=== PATIENT | female | born 1960 | race Caucasian/White ===

== ENCOUNTER 2024-01-23 12:45 | Emergency (ER) | payer OTHER, SELFPAY ==
[2024-01-23 12:48] VITALS: BP 117/79
[2024-01-23 13:08] LABS: % Basophils 0.2 % (0-2); % Eosinophils 6.9 % (0-6); % Immature Granulocytes 0.2 % (0-0.5); % Lymphocytes 32.2 % (20.5-51.1); % Monocytes 7.1 % (1.7-9.3); % Neutrophils 53.4 % (42.2-75.2); Absolute Eosinophils 0.6 10^3/uL (0-0.7); Absolute Lymphocytes 2.9 10^3/uL (1.2-3.4); Absolute Monocytes 0.6 10^3/uL (0.1-0.6); Absolute Neutrophils 4.8 10^3/uL (1.4-6.5); Hematocrit 37.2 % (37.0-47.0); Hemoglobin 12.9 g/dL (12.0-16.0); Mean Corp Hgb Conc. 34.7 g/dL (33.0-37.0); Mean Corpuscular Hgb 29.5 pg (27.0-31.0); Mean Corpuscular Volume 85.1 fL (81.0-99.0); Mean Platelet Volume 10.4 fL (7.4-10.4); Nucleated Red Blood Cells % 0 %; Platelet Count 223 10^3/uL (130-400); Red Blood Cell Count 4.37 10^6/uL (4.20-5.40); Red Cell Dist. Width 12.7 % (11.5-14.5)
[2024-01-23 13:28] LABS: ALT (SGPT) 24 U/L (0-35); AST (SGOT) 34 U/L (14-36); Albumin 4.5 g/dl (3.5-5.0); Alkaline Phosphatase 57 U/L (38-126); Blood Urea Nitrogen 18 mg/dl (7-17); Calcium 9.7 mg/dl (8.4-10.2); Carbon Dioxide 26 mmol/L (22-30); Chloride 104 mmol/L (98-107); Glucose 103 mg/dl (70-99); Lipase 94 U/L (23-300); Potassium 4.8 mmol/L (3.5-5.1); Sodium 140 mmol/L (135-145); Total Bilirubin 0.6 mg/dl (0.2-1.3); Total Protein 7.1 g/dl (6.3-8.2); eGFR > 60.00
--- NOTE | 2024-01-23 15:06 | ED.GENMED ---
History of Present Illness
General
Chief Complaint: Abdominal Pain
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
Exam Limitations: none
Time Seen by Provider: 01/23/24 14:40
Nursing documentation reviewed up to this point in time: agreed with
History of Present Illness
History of Present Illness:
63-year-old female with no significant past medical history states she has had a week of mid to right upper quadrant pain, describes it as burning pain, it was worse last night and she had difficulty sleeping due to the pain. She took 1 omeprazole
with no relief. She has had intermittent nausea and this morning she was nauseous and vomited 3 times. Since yesterday she had diarrhea 3 times, 1 moderate amount and a few small squirts, last diarrhea was 4 AM. She states it was nonbloody. She
denies change in color of her stool.
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
Past History
Past History
ED Past Medical History: GERD
ED Past Surgical History: None
Social History
Tobacco: Non-smoker
Alcohol: None
Living: with family
Review of Systems
Review of Systems
Allergies reviewed?: Yes
All Other Systems: ROS reviewed and negative except as documented in HPI and ROS
Constitutional: Denies fever
EENT: Denies sore throat
Respiratory: Denies trouble breathing
Cardiac: Denies chest pain
ABD/GI: Reports abdominal pain, nausea, vomiting and diarrhea; Denies constipated, bloody stools, black stools or anorexia
: Denies dysuria, frequency or difficulty voiding
Musculoskeletal: Reports no symptoms
Skin: Reports no symptoms
Neurological: Reports no symptoms
Phy Exam
Physical Exam
Physical Exam:
GENERAL: No acute distress. A&Ox3.
CONSTITUTIONAL: Afebrile.
EYES: clear, conjunctivae normal
ENMT: moist mucus membranes, Pharynx nl
RESPIRATORY: Regular respirations, nonlabored, lungs clear.
CARDIOVASCULAR: Regular rate and rhythm, no murmurs, no rubs.
GI: Soft, tedner epigastric area mainly, mildly tender RUQ. Non distended, normal BS
MUSCULOSKELETAL: Moves with ease. Well perfused.
SKIN: Warm, dry, pink
PSYCH: Normal mood and affect. Well kept, interactive and appropriate
NEUROLOGIC: Awake, alert and oriented. No focal neurological deficits
Course
Orders/Labs/Results
Orders:
Orders
01/23/24 12:59
Complete Blood Count/With Diff Urgent
Comprehensive Metabolic Panel Urgent
Lipase Urgent
01/23/24 15:06
US Abdomen Complete/Upper Urgent
Comment:
Reason For Exam: mid to RUQ pain
01/23/24 17:48
Pantoprazole [Protonix] 40 mg PO NOW STA
Sucralfate [Carafate] 1 gram PO NOW STA
Abnormal Lab Results
01/23/24
12:59
Eosinophils % 6.9 H %
(0-6)
BUN 18 H mg/dl
(7-17)
Glucose 103 H mg/dl
(70-99)
01/23/24 12:59
01/23/24 12:59
Vital Signs
Initial and Last Documented VS:
Initial Vital Signs
Temp Pulse Resp BP Pulse Ox
97.7 F 77 18 117/79 94
01/23/24 12:48 01/23/24 12:48 01/23/24 12:48 01/23/24 12:48 01/23/24 12:48
Last Documented Vital Signs
Temp Pulse Resp BP Pulse Ox
97.7 F 66 18 121/70 97
01/23/24 12:48 01/23/24 17:25 01/23/24 17:25 01/23/24 17:25 01/23/24 17:25
MDM/Problems Addressed
Differential Diagnosis Includes:
GERD, GB disease, gastritis, PUD
MDM/Problems Addressed:
63-year-old female with no significant past medical history states she has had a week of mid to right upper quadrant pain, describes it as burning pain, it was worse last night and she had difficulty sleeping due to the pain. She took 1 omeprazole
with no relief. She has had intermittent nausea and this morning she was nauseous and vomited 3 times. Since yesterday she had diarrhea 3 times, 1 moderate amount and a few small squirts, last diarrhea was 4 AM. She states it was nonbloody. She
denies change in color of her stool.
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
CBC normal
CMP normal
5:30 PM: Awaiting ultrasound reading
Pt has been comfortable, pain 4/10.
No sign of GI bleed.
Upper abdominal US neg
Given dose of Protonix and Carafate
Rx for Protonix and Carafate sent to her pharmacy
Referred to GI for f/u
*Critical Care Note
Total Time (30-74mins, 75-104mins- exclusive of procedures): Not Applicable
ED Attending Note
-
Portions of this chart may have been created with voice recognition software.� Occasional wrong word or��sound alike� substitutions may have occurred due to the inherent limitations of voice recognition software.
Discharge Plan
Departure
Patient Disposition: Home (Routine Discharge)
Date of Disposition: 01/23/24
Time of Disposition: 17:49
Patient with high blood pressure during this ER visit?: No
Condition: Good
Discharge Problem:
GERD (gastroesophageal reflux disease)
Instructions: Acid Reflux and GERD in Adults (DC), Abdominal Pain
Prescriptions:
New
sucralfate [Carafate] 1 gram tablet
1 g PO ACHS Qty: 40 0RF
pantoprazole [Protonix] 40 mg tablet,delayed release (DR/EC)
40 mg PO DAILY Qty: 30 0RF
Referrals:
Jhon Leonard MD [Active] - Next open appointment
NONE,* [Family Provider] -
Activity Restrictions/Additional Instructions:
As we discussed, take the Carafate 30 minutes before you eat tonight.
I sent prescriptions for Carafate and Protonix to your pharmacy.
Call the GI doctor's office tomorrow and make follow up appointment
Interventions
Interventions:
*Risk Screen - Suicide Last Done: 01/23/24 12:55
*General Assessment Last Done: 01/23/24 12:55
*Neglect/Abuse Screening Last Done: 01/23/24 12:55
*Nursing Disposition Last Done: 01/23/24 17:58
XO-Dubbkg-Errjbzzvwj Assessment Last Done: 01/23/24 15:13
Discharge Date and Time
Discharge Date/Time: 01/23/24 17:59
Print Language: [place]
[2024-01-23 15:12] VITALS: BP 117/73
[2024-01-23 17:25] VITALS: BP 121/70
[2024-01-23] MEDS: PROTONIX 40 MG PO (17:55)
[2024-01-23] MEDS: CARAFATE 1 GRAM PO (17:55)
== END 2024-01-23 17:59 | disposition home or self-care (01) ==
LOC: EMR 12:45
PROVIDERS: EMERGENCY PHYSICIAN Emergency Medicine
DX: K21.9 Gastro-esophageal reflux disease without esophagitis (principal)
CPT/HCPCS: 99284; 76700; 80053; 83690; 85025